=== PATIENT | male | born 1965 | race Caucasian/White ===

== ENCOUNTER 2017-08-22 09:07 | Day surgery (SDC) | payer MEDICARE ==
[~2017-08-22 09:07] MED LIST: PROPOFOL INJ 200 MG/20 ML VIAL IV ONE
[2017-08-22] MEDS ORDERED: PROPOFOL INJ 200 MG/20 ML VIAL IV ONE (10:11)
[2017-08-22 10:45] VITALS: BP 119/68
--- NOTE | 2017-08-22 12:17 | Operative Report ---
Operative Report DATE OF SURGERY: 08/22/17 Operative Report: The risks, benefits and alternatives of the procedure including risks of bleeding, perforation requiring surgery are explained to the patient in detail and informed consent is obtained. Patient was taken back to the endoscopy suite and placed in the left, lateral decubital position. Timeout was called. Propofol medications administered. A rectal examination is done which did not reveal any masses, tears or fissures. An Olympus videoscope was inserted into the patient's rectum. The scope was then carefully advanced all the way to the cecum. The cecum was identified by the usual anatomical landmarks including the ileocecal valve as well as the appendiceal office. Photodocumentation is obtained. Prep was good. Scope was then sequentially pulled back via the various segments of the colon including the ascending colon, hepatic flexure, transverse colon, splenic flexure, descending colon and finding to the rectosigmoid portions of the colon. Retroflexion maneuver is performed. PREOPERATIVE DIAGNOSIS: Colorectal cancer screening POSTOPERATIVE DIAGNOSIS: Rectal polyps 2 status post biopsy for removal OPERATION: Colonoscopy with biopsy SURGEON: GIO HERRERA ANESTHESIA: LMAC TISSUE REMOVED OR ALTERED: As noted above. COMPLICATIONS: None. ESTIMATED BLOOD LOSS: None. INTRAOPERATIVE FINDINGS: As noted above. PROCEDURE: Patient tolerated procedure well. No immediate postprocedure complications are noted. Patient discharged in good condition. Discharge date 08/22/2017. Discharge diet: Regular. Discharge activity: Regular. 2-3 week follow-up to discuss findings. Patient is instructed to call the office or proceed to the emergency room should there be any further problems or questions. We will wait on pathology. 3-5 year surveillance colonoscopy.
== END 2017-08-22 10:40 | disposition home or self-care (01) ==
LOC: END 09:07
PROVIDERS: ATTEND Internal Medicine Gastroenterology
PROC: 0DBP8ZX Excision of Rectum, Via Natural or Artificial Opening Endoscopic, Diagnostic (ICD-10-PCS; principal; 2017-08-22 11:30)
DX: Z12.11 Encounter for screening for malignant neoplasm of colon (principal); K63.5 Polyp of colon; Z80.0 Family history of malignant neoplasm of digestive organs; I10 Essential (primary) hypertension; J44.9 Chronic obstructive pulmonary disease, unspecified; E16.2 Hypoglycemia, unspecified; Z79.899 Other long term (current) drug therapy
CPT/HCPCS: 45380; 88305 ×2; J2704; 812

== ENCOUNTER → 2018-09-06 | Outpatient (CLI) | payer MEDICARE ==
--- NOTE | 2018-09-07 07:54 | XCELERA REPORT ---
[address] [address] Lower Extremity Arterial Evaluation Name: KINGSLEY MG Age: 53 yrs Gender: Male : 1965 Patient Status: Outpatient Patient Location: Study Date: 09/06/2018 08:59 AM Procedure: A color flow and duplex scan of the lower extremity arteries was performed bilaterally with velocity and waveform anaylsis. Ankle brachial indicies performed. Reason For Study: ABSENT PULSES OF FEET Ordering Physician: KOURTNEY KAUFMAN Performed By: María Elena Díaz Measurements and Calculations Right Left RECONSIGNMENT CLERK PSV 164.1 177.4 cm/sec Prox PFA PSV -136.2 -111.6cm/sec Prox SFA PSV 112.4 -110.0cm/sec Mid SFA PSV -89.3 -72.2 cm/sec Dist SFA PSV -82.3 -83.3 cm/sec Prox Pop A PSV -72.2 -66.4 cm/sec Mid ESPERANZA PSV 52.6 -54.8 cm/sec Mid MACHINE MAINTENANCE PSV 71.7 40.9 cm/sec Marshall Pedis PSV 32.6 30.6 cm/sec Right Side Arterial Evaluation Normal velocity and triphasic waveforms noted from the Common Femoral artery to the infrageniculate vessels . Ankle Brachial index 1.08. Left Side Arterial Evaluation Normal velocity and triphasic waveforms noted from the Common Femoral artery to the infrageniculate vessels . Ankle Brachial index 1.16. Interpretation Summary : KOURTNEY KAUFMAN > Kourtney Kaufman
== END ==
LOC: SP 08:29
PROVIDERS: ATTEND Surgery
DX: R09.89 Other specified symptoms and signs involving the circulatory and respiratory systems (principal)
CPT/HCPCS: 93925